=== PATIENT | male | born 1945 | race Caucasian/White ===

== ENCOUNTER 2024-04-11 20:33 | Inpatient (IN) | payer MEDICARE, MEDICAID, OTHER ==
[~2024-04-11] VITALS: Ht 177.8 cm; Wt 54.4 kg
[2024-04-11 20:47] VITALS: BP_SYST 157; PULSE 74; RESP 19; TEMP 96; O2SAT 98
[2024-04-11 21:08] LABS: BASOPHILS % (AUTO) 0.1 % (0.0-2.0); EOSINOPHILS % (AUTO) 0.1 % (0.0-4.0); HEMOGLOBIN 15.1 g/dL (14.0-18.0); LYMPHOCYTES # (AUTO) 0.4 K/uL (1.0-5.5); LYMPHOCYTES % (AUTO) 2.3 % (20.5-51.5); MEAN CORPUSCULAR HEMOGLOBIN 32 pg (27-31); MEAN CORPUSCULAR HGB CONC 34 % (32-36); MEAN CORPUSCULAR VOLUME 92 fL (79.0-98.0); MONOCYTES # (AUTO) 0.8 K/uL (0.0-1.0); MONOCYTES % (AUTO) 4.3 % (1.7-9.3); NEUTROPHILS # (AUTO) 16.2 K/uL (1.8-7.7); NEUTROPHILS % (AUTO) 93.2 % (40.0-70.0); PLATELET COUNT (AUTO) 634 K/uL (130-430); RED BLOOD CELL COUNT(AUTO) 4.77 MIL/uL (4.2-6.2); WHITE BLOOD COUNT (AUTO) 17.4 K/uL (4.8-10.8)
[2024-04-11 21:32] LABS: ANION GAP 8 (5-15); CALCIUM 9.3 mg/dL (8.4-11.0); CARBON DIOXIDE 27 mmol/L (23-29); CREATININE 0.58 mg/dL (0.55-1.30); GLUCOSE 142 mg/dL (74-106); POTASSIUM 4.6 mmol/L (3.5-5.1); UREA NITROGEN, BLOOD 7 mg/dL (8-21)
[2024-04-11 21:42] LABS: CHLORIDE 81 mmol/L (98-107)
[2024-04-11 21:43] LABS: SODIUM SERUM 116 mmol/L (136-145)
[2024-04-11] MEDS: NACL 0.9% 1,000 ML IV ONE (23:45)
[2024-04-12] VITALS (7 sets, daily range): BP systolic 120–140; PULSE 76–89; RESP 16–20; TEMP 97.9–99.5; O2SAT 94–97
[2024-04-12] MEDS: cefTRIAXone 1 GM IVPB PREMIX 50 ML IV ONE ×2 (02:01→02:04)
[2024-04-12] MEDS ORDERED: LORazepam 2 MG/ML VIAL IVP PRN (11:00)
[2024-04-12] MEDS ORDERED: NALOXONE HCL 0.4 MG/ML AMP (NARCAN) IVP PRN ×2 (11:00)
[2024-04-12] MEDS ORDERED: ONDANSETRON HCL 4 MG/2 ML VIAL IVP PRN (11:00)
[2024-04-12 11:36] LABS: BASOPHILS % (AUTO) 0.2 % (0.0-2.0); EOSINOPHILS % (AUTO) 0.1 % (0.0-4.0); HEMATOCRIT 40.8 % (36-54); HEMOGLOBIN 13.7 g/dL (14.0-18.0); LYMPHOCYTES # (AUTO) 0.6 K/uL (1.0-5.5); LYMPHOCYTES % (AUTO) 3.5 % (20.5-51.5); MEAN CORPUSCULAR HEMOGLOBIN 31 pg (27-31); MEAN CORPUSCULAR HGB CONC 34 % (32-36); MEAN CORPUSCULAR VOLUME 93 fL (79.0-98.0); MONOCYTES % (AUTO) 5.4 % (1.7-9.3); NEUTROPHILS # (AUTO) 16.3 K/uL (1.8-7.7); NEUTROPHILS % (AUTO) 90.8 % (40.0-70.0); PLATELET COUNT (AUTO) 591 K/uL (130-430); RED BLOOD CELL COUNT(AUTO) 4.38 MIL/uL (4.2-6.2); WHITE BLOOD COUNT (AUTO) 17.9 K/uL (4.8-10.8)
[2024-04-12 11:54] LABS: ALANINE AMINOTRANSFERASE 31 U/L (12-78); ALBUMIN 3.2 g/dL (3.4-4.8); ANION GAP 10 (5-15); ASPARTATE AMINOTRANSFERASE 62 U/L (10-37); CALCIUM 8.9 mg/dL (8.4-11.0); CARBON DIOXIDE 24 mmol/L (23-29); CREATININE 0.58 mg/dL (0.55-1.30); POTASSIUM 3.6 mmol/L (3.5-5.1); TOTAL BILIRUBIN 0.5 mg/dL (0.0-1.0); TOTAL PROTEIN, SERUM 6.7 g/dL (6.4-8.3); UREA NITROGEN, BLOOD 18 mg/dL (8-21)
[2024-04-12 11:59] LABS: SODIUM SERUM 118 mmol/L (136-145)
[2024-04-12 12:00] LABS: CHLORIDE 84 mmol/L (98-107); GLUCOSE 37 mg/dL (74-106)
[2024-04-12] MEDS ORDERED: D5W 1,000 ML IV SCH (12:15)
[2024-04-12] MEDS: DEXTROSE 50% JECT 50 ML DISP.SYRIN IVP ONE ×2 (12:39→18:48)
[2024-04-12] MEDS: NORMAL SALINE 5 ML DISP.SYRIN IVF SCH (14:11)
[2024-04-12] MEDS: D5NS 1,000 ML IV SCH (14:21)
[2024-04-12 16:40] LABS: ANION GAP 10 (5-15); CALCIUM 8.6 mg/dL (8.4-11.0); CARBON DIOXIDE 23 mmol/L (23-29); CREATININE 0.65 mg/dL (0.55-1.30); GLUCOSE 125 mg/dL (74-106); POTASSIUM 3.7 mmol/L (3.5-5.1); UREA NITROGEN, BLOOD 17 mg/dL (8-21)
[2024-04-12 16:42] LABS: CHLORIDE 83 mmol/L (98-107)
[2024-04-12 16:44] LABS: SODIUM SERUM 116 mmol/L (136-145)
[2024-04-12] MEDS: metroNIDAZOLE 500 mg/NS 100 ML IV SCH (20:22)
[2024-04-12] MEDS ORDERED: GLUCOSE (DEXTROSE) ORAL GEL -Adults PO PRN (20:45)
[2024-04-12] MEDS ORDERED: D5W 1,000 ML IV PRN (20:45)
[2024-04-12] MEDS ORDERED: DEXTROSE 50% JECT 50 ML DISP.SYRIN IVP PRN (20:45)
[2024-04-12 23:20] LABS: BILIRUBIN,URINE NEGATIVE (NEGATIVE); BLOOD, URINE NEGATIVE (NEGATIVE); CLARITY/URINE CLEAR (CLEAR); COLOR,URINE YELLOW (YELLOW); GLUCOSE,URINE 3+ (NEGATIVE); KETONES,URINE 1+ (NEGATIVE); LEUKOCYTE ESTERASE ,URINE NEGATIVE (NEGATIVE); NITRITE, URINE NEGATIVE (NEGATIVE); PROTEIN URINE NEGATIVE (NEGATIVE); UROBILINOGEN,URINE 0.2 (0.2-1.0)
[2024-04-13] VITALS: BP_SYST 110; PULSE 85; RESP 16; TEMP 98.4; O2SAT 97
[2024-04-13] MEDS: cefTRIAXone 1 GM IVPB PREMIX 50 ML IV SCH (01:52)
[2024-04-13 04:43] LABS: BASOPHILS % (AUTO) 0.3 % (0.0-2.0); EOSINOPHILS % (AUTO) 0.3 % (0.0-4.0); HEMATOCRIT 36.6 % (36-54); HEMOGLOBIN 12.5 g/dL (14.0-18.0); LYMPHOCYTES # (AUTO) 0.6 K/uL (1.0-5.5); LYMPHOCYTES % (AUTO) 6.2 % (20.5-51.5); MEAN CORPUSCULAR HEMOGLOBIN 32 pg (27-31); MEAN CORPUSCULAR HGB CONC 34 % (32-36); MEAN CORPUSCULAR VOLUME 93 fL (79.0-98.0); MONOCYTES # (AUTO) 0.9 K/uL (0.0-1.0); MONOCYTES % (AUTO) 9.8 % (1.7-9.3); NEUTROPHILS # (AUTO) 7.7 K/uL (1.8-7.7); NEUTROPHILS % (AUTO) 83.4 % (40.0-70.0); PLATELET COUNT (AUTO) 534 K/uL (130-430); RED BLOOD CELL COUNT(AUTO) 3.95 MIL/uL (4.2-6.2); RED CELL DISTRIBUTION WIDTH 14.3 % (9.0-15.0); WHITE BLOOD COUNT (AUTO) 9.3 K/uL (4.8-10.8)
[2024-04-13 05:24] LABS: ANION GAP 9 (5-15); CALCIUM 8.2 mg/dL (8.4-11.0); CARBON DIOXIDE 25 mmol/L (23-29); CREATININE 0.63 mg/dL (0.55-1.30); GLUCOSE 215 mg/dL (74-106); PHOSPHORUS 2.6 mg/dL (2.7-4.5); POTASSIUM 3.4 mmol/L (3.5-5.1); THYROID STIMULATING HORMONE 2.39 uIu/mL (0.36-3.74); UREA NITROGEN, BLOOD 11 mg/dL (8-21); URIC ACID 3.5 mg/dL (2.4-7.0)
[2024-04-13 05:52] LABS: CHLORIDE 85 mmol/L (98-107); SODIUM SERUM 119 mmol/L (136-145)
[2024-04-13 07:15] VITALS: O2SAT 98
[2024-04-13 08:00] VITALS: BP_SYST 130; PULSE 82; RESP 18; TEMP 97.6; O2SAT 98
[2024-04-13] MEDS: ACETAMINOPHEN 325 MG TABLET PO PRN (09:05)
[2024-04-13] MEDS: ASPIRIN 81 MG TABLET(ECOTRIN) PO SCH (09:07)
[2024-04-13] MEDS: HYDROcodone/ACETAMIN 10-325 MG TAB PO PRN (10:47)
[2024-04-13] MEDS: MAGNESIUM SULFATE 50 ML IV ONE (11:30)
[2024-04-13] MEDS: CALCIUM GLUC 2 GM/100ML-NACL 100 ML IV ONE (12:10)
[2024-04-13 12:43] VITALS: BP_SYST 128; PULSE 85; RESP 17; TEMP 98.6; O2SAT 94
[2024-04-13] MEDS: K PHOS 15 MM in NS 250 ML IV ONE (13:47)
[2024-04-13 16:30] VITALS: BP_SYST 133; PULSE 80; RESP 18; TEMP 98; O2SAT 94
[2024-04-13] MEDS: INSULIN REGULAR, HUMAN 100 UNITS/ML, 3 ML VIAL (humuLIN R) SUBCUT PRN (18:19)
[2024-04-13 20:00] VITALS: BP_SYST 115; PULSE 88; RESP 18; TEMP 98.3; O2SAT 96
[2024-04-14] VITALS: BP_SYST 114; PULSE 73; RESP 18; TEMP 98; O2SAT 98
[2024-04-14 04:37] LABS: ERYTHROCYTE SEDIMENTATION RATE 7 MM/HR (0-15)
[2024-04-14 04:39] LABS: BASOPHILS % (AUTO) 0.5 % (0.0-2.0); EOSINOPHILS # (AUTO) 0.1 K/uL (0.0-0.4); EOSINOPHILS % (AUTO) 1.6 % (0.0-4.0); HEMATOCRIT 34.7 % (36-54); LYMPHOCYTES % (AUTO) 11.6 % (20.5-51.5); MEAN CORPUSCULAR HEMOGLOBIN 32 pg (27-31); MEAN CORPUSCULAR HGB CONC 35 % (32-36); MEAN CORPUSCULAR VOLUME 93 fL (79.0-98.0); MONOCYTES # (AUTO) 1.2 K/uL (0.0-1.0); MONOCYTES % (AUTO) 13.8 % (1.7-9.3); NEUTROPHILS # (AUTO) 6.5 K/uL (1.8-7.7); NEUTROPHILS % (AUTO) 72.5 % (40.0-70.0); PLATELET COUNT (AUTO) 496 K/uL (130-430); RED BLOOD CELL COUNT(AUTO) 3.75 MIL/uL (4.2-6.2); RED CELL DISTRIBUTION WIDTH 14.5 % (9.0-15.0)
[2024-04-14 04:54] VITALS: BP_SYST 122; PULSE 80; RESP 18; TEMP 98; O2SAT 98
[2024-04-14 05:14] LABS: ALANINE AMINOTRANSFERASE 24 U/L (12-78); ALBUMIN 2.6 g/dL (3.4-4.8); ANION GAP 6 (5-15); ASPARTATE AMINOTRANSFERASE 27 U/L (10-37); CALCIUM 8.5 mg/dL (8.4-11.0); CARBON DIOXIDE 27 mmol/L (23-29); CHLORIDE 96 mmol/L (98-107); CREATININE 0.59 mg/dL (0.55-1.30); GLUCOSE 72 mg/dL (74-106); PHOSPHORUS 2.8 mg/dL (2.7-4.5); POTASSIUM 3.5 mmol/L (3.5-5.1); SODIUM SERUM 129 mmol/L (136-145); TOTAL BILIRUBIN 0.3 mg/dL (0.0-1.0); TOTAL PROTEIN, SERUM 5.7 g/dL (6.4-8.3); UREA NITROGEN, BLOOD 7 mg/dL (8-21)
[2024-04-14 08:00] VITALS: BP_SYST 123; PULSE 85; RESP 18; TEMP 97.3; O2SAT 93
[2024-04-14 08:06] LABS: CORTISOL (SERUM) 16.3 ug/dL (6.2-19.4)
[2024-04-14] MEDS: SODIUM CHLORIDE 1,000 MG TABLET PO ONE (11:37)
[2024-04-14 13:14] VITALS: BP_SYST 123; PULSE 71; RESP 16; TEMP 98.4; O2SAT 98
[2024-04-14 17:19] VITALS: BP_SYST 138; PULSE 71; RESP 17; TEMP 97.8; O2SAT 98
[2024-04-14 20:00] VITALS: BP_SYST 139; PULSE 70; RESP 18; TEMP 97.7; O2SAT 96
[2024-04-14] MEDS: SODIUM CHLORIDE 1,000 MG TABLET PO SCH (21:35)
[2024-04-15] VITALS (7 sets, daily range): BP systolic 127–149; PULSE 67–86; RESP 12–18; TEMP 96.4–98.5; O2SAT 93–98
[2024-04-15 05:29] LABS: BASOPHILS % (AUTO) 0.7 % (0.0-2.0); EOSINOPHILS # (AUTO) 0.3 K/uL (0.0-0.4); EOSINOPHILS % (AUTO) 4.8 % (0.0-4.0); HEMATOCRIT 35.9 % (36-54); HEMOGLOBIN 12.2 g/dL (14.0-18.0); LYMPHOCYTES # (AUTO) 0.9 K/uL (1.0-5.5); LYMPHOCYTES % (AUTO) 15.4 % (20.5-51.5); MEAN CORPUSCULAR HEMOGLOBIN 32 pg (27-31); MEAN CORPUSCULAR HGB CONC 34 % (32-36); MEAN CORPUSCULAR VOLUME 94 fL (79.0-98.0); MONOCYTES # (AUTO) 0.6 K/uL (0.0-1.0); MONOCYTES % (AUTO) 10.3 % (1.7-9.3); NEUTROPHILS # (AUTO) 4.2 K/uL (1.8-7.7); NEUTROPHILS % (AUTO) 68.8 % (40.0-70.0); PLATELET COUNT (AUTO) 508 K/uL (130-430); RED BLOOD CELL COUNT(AUTO) 3.83 MIL/uL (4.2-6.2); RED CELL DISTRIBUTION WIDTH 14.4 % (9.0-15.0); WHITE BLOOD COUNT (AUTO) 6.1 K/uL (4.8-10.8)
[2024-04-15 05:33] LABS: ANION GAP 6 (5-15); CALCIUM 8.2 mg/dL (8.4-11.0); CARBON DIOXIDE 28 mmol/L (23-29); CHLORIDE 98 mmol/L (98-107); CREATININE 0.55 mg/dL (0.55-1.30); GLUCOSE 86 mg/dL (74-106); PHOSPHORUS 3.2 mg/dL (2.7-4.5); POTASSIUM 3.9 mmol/L (3.5-5.1); SODIUM SERUM 132 mmol/L (136-145); UREA NITROGEN, BLOOD 6 mg/dL (8-21)
[2024-04-15 07:56] LABS: ERYTHROCYTE SEDIMENTATION RATE 21 MM/HR (0-15)
[2024-04-15] MEDS: HYDROcodone/ACETAMIN 5-325 MG TAB (NORCO/ VICODIN) PO PRN (20:28)
[2024-04-16] VITALS: BP_SYST 121; PULSE 65; RESP 16; TEMP 97.8; O2SAT 98
[2024-04-16 07:47] VITALS: BP_SYST 146; PULSE 73; RESP 17; O2SAT 97
[2024-04-16 08:30] LABS: BASOPHILS % (AUTO) 0.7 % (0.0-2.0); EOSINOPHILS # (AUTO) 0.3 K/uL (0.0-0.4); EOSINOPHILS % (AUTO) 5.2 % (0.0-4.0); HEMATOCRIT 38.5 % (36-54); LYMPHOCYTES # (AUTO) 0.9 K/uL (1.0-5.5); LYMPHOCYTES % (AUTO) 14.1 % (20.5-51.5); MEAN CORPUSCULAR HEMOGLOBIN 32 pg (27-31); MEAN CORPUSCULAR HGB CONC 34 % (32-36); MEAN CORPUSCULAR VOLUME 94 fL (79.0-98.0); MONOCYTES # (AUTO) 0.6 K/uL (0.0-1.0); MONOCYTES % (AUTO) 8.8 % (1.7-9.3); NEUTROPHILS # (AUTO) 4.6 K/uL (1.8-7.7); NEUTROPHILS % (AUTO) 71.2 % (40.0-70.0); PLATELET COUNT (AUTO) 467 K/uL (130-430); RED BLOOD CELL COUNT(AUTO) 4.09 MIL/uL (4.2-6.2); RED CELL DISTRIBUTION WIDTH 14.3 % (9.0-15.0); WHITE BLOOD COUNT (AUTO) 6.5 K/uL (4.8-10.8)
[2024-04-16 08:55] LABS: ALANINE AMINOTRANSFERASE 28 U/L (12-78); ALBUMIN 2.7 g/dL (3.4-4.8); ANION GAP 3 (5-15); ASPARTATE AMINOTRANSFERASE 29 U/L (10-37); CALCIUM 8.4 mg/dL (8.4-11.0); CARBON DIOXIDE 30 mmol/L (23-29); CHLORIDE 95 mmol/L (98-107); CREATININE 0.48 mg/dL (0.55-1.30); GLUCOSE 117 mg/dL (74-106); POTASSIUM 3.9 mmol/L (3.5-5.1); SODIUM SERUM 128 mmol/L (136-145); TOTAL BILIRUBIN 0.3 mg/dL (0.0-1.0); TOTAL PROTEIN, SERUM 5.9 g/dL (6.4-8.3); UREA NITROGEN, BLOOD 7 mg/dL (8-21)
[2024-04-16 15:02] VITALS: BP_SYST 128; PULSE 81; RESP 16; TEMP 97; O2SAT 96
[2024-04-16 20:00] VITALS: BP_SYST 133; PULSE 80; RESP 16; TEMP 97.8; O2SAT 95
[2024-04-17] VITALS: BP_SYST 129; PULSE 68; RESP 16; TEMP 97; O2SAT 96
[2024-04-17 12:30] VITALS: BP_SYST 144; PULSE 81; RESP 17; TEMP 98.9; O2SAT 97
[2024-04-17 16:52] VITALS: BP_SYST 124; PULSE 74; RESP 16; TEMP 98; O2SAT 96
[2024-04-17 20:00] VITALS: BP_SYST 145; PULSE 67; RESP 18; TEMP 97.5; O2SAT 99
[2024-04-18] VITALS: BP_SYST 138; PULSE 72; RESP 18; TEMP 97.4; O2SAT 96
[2024-04-18 04:17] LABS: ERYTHROCYTE SEDIMENTATION RATE 15 MM/HR (0-15)
[2024-04-18 04:28] LABS: BASOPHILS % (AUTO) 0.8 % (0.0-2.0); EOSINOPHILS # (AUTO) 0.3 K/uL (0.0-0.4); EOSINOPHILS % (AUTO) 6.2 % (0.0-4.0); HEMATOCRIT 35.4 % (36-54); LYMPHOCYTES % (AUTO) 17.5 % (20.5-51.5); MEAN CORPUSCULAR HEMOGLOBIN 31 pg (27-31); MEAN CORPUSCULAR HGB CONC 34 % (32-36); MEAN CORPUSCULAR VOLUME 93 fL (79.0-98.0); MONOCYTES # (AUTO) 0.6 K/uL (0.0-1.0); MONOCYTES % (AUTO) 11.5 % (1.7-9.3); NEUTROPHILS # (AUTO) 3.5 K/uL (1.8-7.7); PLATELET COUNT (AUTO) 444 K/uL (130-430); RED BLOOD CELL COUNT(AUTO) 3.82 MIL/uL (4.2-6.2); RED CELL DISTRIBUTION WIDTH 14.4 % (9.0-15.0); WHITE BLOOD COUNT (AUTO) 5.5 K/uL (4.8-10.8)
[2024-04-18 05:01] LABS: ANION GAP 6 (5-15); CALCIUM 8.3 mg/dL (8.4-11.0); CARBON DIOXIDE 29 mmol/L (23-29); CHLORIDE 95 mmol/L (98-107); CREATININE 0.51 mg/dL (0.55-1.30); GLUCOSE 120 mg/dL (74-106); POTASSIUM 3.5 mmol/L (3.5-5.1); SODIUM SERUM 130 mmol/L (136-145); UREA NITROGEN, BLOOD 9 mg/dL (8-21)
[2024-04-18 11:06] VITALS: BP_SYST 135; PULSE 82; RESP 18; TEMP 97.7; O2SAT 95
[2024-04-18 16:29] VITALS: BP_SYST 137; PULSE 83; RESP 18; TEMP 97.8; O2SAT 95
[2024-04-18] MEDS: SODIUM CHLORIDE 1,000 MG TABLET PO SCH (17:37)
[2024-04-18 20:04] VITALS: O2SAT 97
[2024-04-18 21:54] VITALS: BP_SYST 139; PULSE 85; RESP 20; TEMP 98.4; O2SAT 97
[2024-04-19 00:34] VITALS: BP_SYST 147; PULSE 65; RESP 16; TEMP 97.4; O2SAT 97
[2024-04-19 08:00] VITALS: BP_SYST 138; PULSE 64; RESP 16; TEMP 97.8; O2SAT 97
[2024-04-19 08:14] LABS: BASOPHILS % (AUTO) 0.8 % (0.0-2.0); EOSINOPHILS # (AUTO) 0.3 K/uL (0.0-0.4); EOSINOPHILS % (AUTO) 5.6 % (0.0-4.0); HEMATOCRIT 36.6 % (36-54); HEMOGLOBIN 12.3 g/dL (14.0-18.0); LYMPHOCYTES # (AUTO) 1.3 K/uL (1.0-5.5); LYMPHOCYTES % (AUTO) 23.4 % (20.5-51.5); MEAN CORPUSCULAR HEMOGLOBIN 32 pg (27-31); MEAN CORPUSCULAR HGB CONC 34 % (32-36); MEAN CORPUSCULAR VOLUME 94 fL (79.0-98.0); MONOCYTES # (AUTO) 0.5 K/uL (0.0-1.0); NEUTROPHILS # (AUTO) 3.5 K/uL (1.8-7.7); NEUTROPHILS % (AUTO) 61.2 % (40.0-70.0); PLATELET COUNT (AUTO) 392 K/uL (130-430); RED BLOOD CELL COUNT(AUTO) 3.88 MIL/uL (4.2-6.2); RED CELL DISTRIBUTION WIDTH 14.2 % (9.0-15.0); WHITE BLOOD COUNT (AUTO) 5.7 K/uL (4.8-10.8)
[2024-04-19 08:36] LABS: ALANINE AMINOTRANSFERASE 32 U/L (12-78); ALBUMIN 2.6 g/dL (3.4-4.8); ANION GAP 5 (5-15); ASPARTATE AMINOTRANSFERASE 26 U/L (10-37); CALCIUM 8.4 mg/dL (8.4-11.0); CARBON DIOXIDE 29 mmol/L (23-29); CHLORIDE 93 mmol/L (98-107); CREATININE 0.56 mg/dL (0.55-1.30); GLUCOSE 170 mg/dL (74-106); PHOSPHORUS 3.2 mg/dL (2.7-4.5); POTASSIUM 4.1 mmol/L (3.5-5.1); SODIUM SERUM 127 mmol/L (136-145); TOTAL BILIRUBIN 0.3 mg/dL (0.0-1.0); TOTAL PROTEIN, SERUM 5.7 g/dL (6.4-8.3); UREA NITROGEN, BLOOD 10 mg/dL (8-21)
[2024-04-19 08:38] LABS: ERYTHROCYTE SEDIMENTATION RATE 15 MM/HR (0-15)
[2024-04-19] MEDS: ASPIRIN 325 MG TABLET (ECOTRIN) PO ONE (09:21)
[2024-04-19] MEDS: ASPIRIN 81 MG TABLET(ECOTRIN) ONE (09:22)
[2024-04-19 11:21] VITALS: BP_SYST 144; PULSE 64; RESP 16; TEMP 97.7; O2SAT 97
[2024-04-19] MEDS: NORMAL SALINE 5 ML DISP.SYRIN IVF SCH (12:43)
[2024-04-19] MEDS: SODIUM CHLORIDE 1,000 MG TABLET PO SCH (16:02)
[2024-04-19 16:10] VITALS: BP_SYST 142; PULSE 65; RESP 16; TEMP 97.8; O2SAT 97
[2024-04-19 20:00] VITALS: O2SAT 96
[2024-04-20 01:15] VITALS: BP_SYST 132; PULSE 76; RESP 18; TEMP 98.6; O2SAT 97
[2024-04-20 07:31] LABS: BASOPHILS % (AUTO) 0.6 % (0.0-2.0); EOSINOPHILS # (AUTO) 0.3 K/uL (0.0-0.4); EOSINOPHILS % (AUTO) 4.8 % (0.0-4.0); HEMATOCRIT 36.3 % (36-54); HEMOGLOBIN 12.4 g/dL (14.0-18.0); LYMPHOCYTES # (AUTO) 1.1 K/uL (1.0-5.5); LYMPHOCYTES % (AUTO) 20.6 % (20.5-51.5); MEAN CORPUSCULAR HEMOGLOBIN 32 pg (27-31); MEAN CORPUSCULAR HGB CONC 34 % (32-36); MEAN CORPUSCULAR VOLUME 94 fL (79.0-98.0); MONOCYTES # (AUTO) 0.7 K/uL (0.0-1.0); MONOCYTES % (AUTO) 12.3 % (1.7-9.3); NEUTROPHILS # (AUTO) 3.4 K/uL (1.8-7.7); NEUTROPHILS % (AUTO) 61.7 % (40.0-70.0); PLATELET COUNT (AUTO) 411 K/uL (130-430); RED BLOOD CELL COUNT(AUTO) 3.89 MIL/uL (4.2-6.2); RED CELL DISTRIBUTION WIDTH 14.6 % (9.0-15.0); WHITE BLOOD COUNT (AUTO) 5.5 K/uL (4.8-10.8)
[2024-04-20 07:37] LABS: ANION GAP 4 (5-15); CALCIUM 8.6 mg/dL (8.4-11.0); CARBON DIOXIDE 31 mmol/L (23-29); CHLORIDE 92 mmol/L (98-107); CREATININE 0.56 mg/dL (0.55-1.30); GLUCOSE 164 mg/dL (74-106); SODIUM SERUM 127 mmol/L (136-145); UREA NITROGEN, BLOOD 12 mg/dL (8-21)
[2024-04-20 08:00] VITALS: O2SAT 98
[2024-04-20 12:02] VITALS: BP_SYST 138; PULSE 80; RESP 17; TEMP 98; O2SAT 98
[2024-04-20 16:00] VITALS: BP_SYST 134; PULSE 77; RESP 18; TEMP 98.4; O2SAT 97
[2024-04-20 20:00] VITALS: O2SAT 97
[2024-04-21 00:07] VITALS: BP_SYST 138; PULSE 82; RESP 16; TEMP 97.6; O2SAT 93
[2024-04-21 07:01] LABS: BASOPHILS % (AUTO) 0.8 % (0.0-2.0); EOSINOPHILS # (AUTO) 0.2 K/uL (0.0-0.4); EOSINOPHILS % (AUTO) 3.6 % (0.0-4.0); HEMATOCRIT 35.6 % (36-54); LYMPHOCYTES % (AUTO) 18.8 % (20.5-51.5); MEAN CORPUSCULAR HEMOGLOBIN 32 pg (27-31); MEAN CORPUSCULAR HGB CONC 34 % (32-36); MEAN CORPUSCULAR VOLUME 94 fL (79.0-98.0); MONOCYTES # (AUTO) 0.6 K/uL (0.0-1.0); MONOCYTES % (AUTO) 11.7 % (1.7-9.3); NEUTROPHILS # (AUTO) 3.4 K/uL (1.8-7.7); NEUTROPHILS % (AUTO) 65.1 % (40.0-70.0); PLATELET COUNT (AUTO) 404 K/uL (130-430); RED BLOOD CELL COUNT(AUTO) 3.79 MIL/uL (4.2-6.2); RED CELL DISTRIBUTION WIDTH 14.6 % (9.0-15.0); WHITE BLOOD COUNT (AUTO) 5.3 K/uL (4.8-10.8)
[2024-04-21 07:39] LABS: ALANINE AMINOTRANSFERASE 34 U/L (12-78); ALBUMIN 2.9 g/dL (3.4-4.8); ANION GAP 3 (5-15); ASPARTATE AMINOTRANSFERASE 25 U/L (10-37); CALCIUM 8.8 mg/dL (8.4-11.0); CARBON DIOXIDE 31 mmol/L (23-29); CHLORIDE 93 mmol/L (98-107); GLUCOSE 180 mg/dL (74-106); PHOSPHORUS 3.7 mg/dL (2.7-4.5); POTASSIUM 4.5 mmol/L (3.5-5.1); SODIUM SERUM 127 mmol/L (136-145); TOTAL BILIRUBIN 0.3 mg/dL (0.0-1.0); TOTAL PROTEIN, SERUM 6.1 g/dL (6.4-8.3); UREA NITROGEN, BLOOD 16 mg/dL (8-21)
[2024-04-21 08:00] VITALS: O2SAT 99
[2024-04-21 12:15] VITALS: BP_SYST 154; PULSE 92; RESP 17; TEMP 98.1; O2SAT 96
[2024-04-21] MEDS: TOLVAPTAN 15 MG TABLET PO SCH (13:15)
[2024-04-21 16:16] VITALS: BP_SYST 138; PULSE 84; RESP 17; TEMP 98.4; O2SAT 97
[2024-04-21] MEDS: ALBUMIN HUMAN 25% 50 ML IV SCH (18:27)
[2024-04-21 19:00] VITALS: O2SAT 96
[2024-04-21 22:45] VITALS: BP_SYST 143; PULSE 82; RESP 18; TEMP 97.7; O2SAT 96
[2024-04-22] VITALS (8 sets, daily range): BP systolic 141–154; PULSE 71–92; RESP 13–20; TEMP 97.3–98.1; O2SAT 95–98
[2024-04-22 08:35] LABS: ANION GAP 4 (5-15); CALCIUM 9.2 mg/dL (8.4-11.0); CARBON DIOXIDE 31 mmol/L (23-29); CHLORIDE 92 mmol/L (98-107); CREATININE 0.59 mg/dL (0.55-1.30); GLUCOSE 178 mg/dL (74-106); POTASSIUM 4.3 mmol/L (3.5-5.1); SODIUM SERUM 127 mmol/L (136-145); UREA NITROGEN, BLOOD 12 mg/dL (8-21)
[2024-04-22 08:53] LABS: BASOPHILS % (AUTO) 0.8 % (0.0-2.0); EOSINOPHILS # (AUTO) 0.2 K/uL (0.0-0.4); EOSINOPHILS % (AUTO) 3.3 % (0.0-4.0); HEMATOCRIT 34.8 % (36-54); HEMOGLOBIN 11.8 g/dL (14.0-18.0); LYMPHOCYTES # (AUTO) 0.9 K/uL (1.0-5.5); LYMPHOCYTES % (AUTO) 17.5 % (20.5-51.5); MEAN CORPUSCULAR HEMOGLOBIN 32 pg (27-31); MEAN CORPUSCULAR HGB CONC 34 % (32-36); MEAN CORPUSCULAR VOLUME 94 fL (79.0-98.0); MONOCYTES # (AUTO) 0.6 K/uL (0.0-1.0); MONOCYTES % (AUTO) 11.4 % (1.7-9.3); NEUTROPHILS # (AUTO) 3.6 K/uL (1.8-7.7); PLATELET COUNT (AUTO) 402 K/uL (130-430); RED BLOOD CELL COUNT(AUTO) 3.71 MIL/uL (4.2-6.2); RED CELL DISTRIBUTION WIDTH 14.4 % (9.0-15.0); WHITE BLOOD COUNT (AUTO) 5.3 K/uL (4.8-10.8)
[2024-04-22] MEDS: INSULIN GLARGINE 100 UNITS/ML, 10 ML VIAL SUBCUT SCH (22:09)
[2024-04-23 00:58] VITALS: BP_SYST 153; PULSE 68; RESP 15; TEMP 98.2; O2SAT 98
[2024-04-23] MEDS: cloNIDine HCL 0.1 MG TABLET PO ONE (06:59)
[2024-04-23 08:00] VITALS: O2SAT 96
[2024-04-23 10:39] LABS: BASOPHILS % (AUTO) 0.6 % (0.0-2.0); EOSINOPHILS # (AUTO) 0.1 K/uL (0.0-0.4); EOSINOPHILS % (AUTO) 1.2 % (0.0-4.0); HEMATOCRIT 34.3 % (36-54); HEMOGLOBIN 11.4 g/dL (14.0-18.0); LYMPHOCYTES # (AUTO) 0.6 K/uL (1.0-5.5); LYMPHOCYTES % (AUTO) 10.8 % (20.5-51.5); MEAN CORPUSCULAR HEMOGLOBIN 32 pg (27-31); MEAN CORPUSCULAR HGB CONC 33 % (32-36); MEAN CORPUSCULAR VOLUME 95 fL (79.0-98.0); MONOCYTES # (AUTO) 0.5 K/uL (0.0-1.0); MONOCYTES % (AUTO) 9.5 % (1.7-9.3); NEUTROPHILS # (AUTO) 4.5 K/uL (1.8-7.7); NEUTROPHILS % (AUTO) 77.9 % (40.0-70.0); PLATELET COUNT (AUTO) 356 K/uL (130-430); WHITE BLOOD COUNT (AUTO) 5.8 K/uL (4.8-10.8)
[2024-04-23 10:40] LABS: ANION GAP 7 (5-15); CARBON DIOXIDE 30 mmol/L (23-29); CHLORIDE 90 mmol/L (98-107); CREATININE 0.63 mg/dL (0.55-1.30); GLUCOSE 302 mg/dL (74-106); POTASSIUM 4.8 mmol/L (3.5-5.1); SODIUM SERUM 127 mmol/L (136-145); UREA NITROGEN, BLOOD 13 mg/dL (8-21)
[2024-04-23 11:06] LABS: CALCIUM 9.1 mg/dL (8.4-11.0)
[2024-04-23 11:20] VITALS: BP_SYST 147; PULSE 79; RESP 14; TEMP 97.7; O2SAT 96
== END 2024-04-23 13:58 | DRG 871 ==
LOC: SED 20:33 → STU 04-12 00:15 → SMU 04-16 22:50
PROVIDERS: ADMIT Preventive Medicine Preventive Medicine/Occupational Environmental Medicine; ATTEND Preventive Medicine Preventive Medicine/Occupational Environmental Medicine
DX: A41.9 Sepsis, unspecified organism (principal); E43 Unspecified severe protein-calorie malnutrition; J69.0 Pneumonitis due to inhalation of food and vomit; G93.41 Metabolic encephalopathy; J18.9 Pneumonia, unspecified organism; E87.1 Hypo-osmolality and hyponatremia; E87.20 Acidosis, unspecified; Z68.1 Body mass index [BMI] 19.9 or less, adult; N17.9 Acute kidney failure, unspecified; E10.65 Type 1 diabetes mellitus with hyperglycemia; E10.649 Type 1 diabetes mellitus with hypoglycemia without coma; E83.52 Hypercalcemia; D64.9 Anemia, unspecified; D75.839 Thrombocytosis, unspecified; E83.39 Other disorders of phosphorus metabolism; E83.41 Hypermagnesemia; E88.09 Other disorders of plasma-protein metabolism, not elsewhere classified; Z20.822 Contact with and (suspected) exposure to COVID-19; Z86.73 Personal history of transient ischemic attack (TIA), and cerebral infarction without residual deficits; Z79.899 Other long term (current) drug therapy; Z88.8 Allergy status to other drugs, medicaments and biological substances
CPT/HCPCS: 36415; 70450-TC; 71045; 80048; 80053; 81001; 81003; 82533; 82948; 83605; 83735; 83880; 83930; 83935; 84100; 84302; 84443; 84484; 84550; 85025; 85651; 87040; 87086; 93005; 93306; 93880; 95816; 96365; 97110-GP; 97116-GP; 97530-GP; 99285; G0378; J0696; J1815; J3475; J3490; J7050; P9046